=== PATIENT | male | born 1985 | race Caucasian/White ===

== ENCOUNTER 2017-08-12 20:49 | Emergency (ER) | payer BC ==
--- NOTE | 2017-08-12 21:09 | ERPHSYRPT ---
- History of Present Illness Time Seen by Provider: 08/12/17 21:04 Source: patient Exam Limitations: no limitations Physician History: The patient is a 32-year-old male with his complaining of shortness of breath and left-sided chest pain with deep breaths that began on Sunday. 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 He was wearing a mask. He said there was dust in the room. That night he had a a fever but he didn't take the temperature. He was sweating. Today he has not been sweating. His past medical history significant for pneumonia. Timing/Duration: day(s) (2), gradual onset, worse Activities at Onset: none Severity of Dyspnea-Max: mild Severity of Dyspnea-Current: mild Possible Cause: no prior episodes Modifying Factors: Improves With: deep breath Associated Symptoms: fever, painful breathing, sweating Allergies/Adverse Reactions: No Known Drug Allergies Allergy (Unverified 08/12/17 21:18) - Review of Systems Constitutional: Fever, Chills Eyes: No Symptoms Ears, Nose, & Throat: No Symptoms Respiratory: Dyspnea Cardiac: Chest Pain Abdominal/Gastrointestinal: No Abdominal Pain, No Nausea, No Vomiting, No Diarrhea Genitourinary Symptoms: No Dysuria Musculoskeletal: No Back Pain, No Neck Pain Skin: No Rash Neurological: No Dizziness, No Focal Weakness, No Sensory Changes Psychological: No Symptoms Endocrine: No Symptoms Hematologic/Lymphatic: No Symptoms Immunological/Allergic: No Symptoms All Other Systems: Reviewed and Negative - Nursing Vital Signs Nursing Vital Signs: Initial Vital Signs Temperature 98.7 F 08/12/17 21:00 Pulse Rate 117 H 08/12/17 21:00 Respiratory Rate 20 08/12/17 21:00 Blood Pressure 156/86 08/12/17 21:00 O2 Sat by Pulse Oximetry 95 08/12/17 21:00 Pain Scale Pain Intensity 1 - Physical Exam General Appearance: no apparent distress, alert Eye Exam: PERRL/EOMI Ears, Nose, Throat Exam: hearing grossly normal Neck Exam: normal inspection, supple Respiratory Exam: normal breath sounds, No chest tenderness Cardiovascular/Chest Exam: normal heart sounds, regular rate/rhythm Abdominal/Gastrointestinal Exam: soft, No tenderness, No distention, No mass Rectal Exam: not done Extremity Exam: non-tender, normal range of motion, normal inspection, no calf tenderness, no pedal edema Neurologic Exam: alert, oriented x 3, cooperative, 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 tested, sensation nml, No motor deficits Skin Exam: normal color, warm, No dry SpO2 Interpretation: normal SpO2: 95 Oxygen Delivery: Room Air - Course EKG Interpreted by Me: RATE, NORMAL AXIS, NORMAL INTERVALS, NORMAL QRS, NORMAL ST-T - Radiology Exams Chest X-ray Interpretation: Interpreted by me, Infiltrates (bibasilar infiltrates, comp cxr 10/25/16.) Ordered Tests: Active Orders 24 hr Category Date Time Status Student Development Dean STAT Care 08/12/17 21:14 Active EKG-ER Only STAT Care 08/12/17 21:01 Active IV Insertion STAT Care 08/12/17 21:13 Active Pulse Oximetry (ED) STAT Care 08/12/17 21:13 Active CHEST 2 VIEWS (PA AND LAT) Stat Exams 08/12/17 21:14 Taken BLOOD CULTURE Stat Lab 08/12/17 21:59 Ordered CBC W DIFF Stat Lab 08/12/17 21:15 Completed CMP Stat Lab 08/12/17 21:15 Received D-DIMER QUANTITATION Stat Lab 08/12/17 21:15 Completed NT PRO BNP Stat Lab 08/12/17 21:15 Received TROPONIN Q3H Lab 08/12/17 21:15 Completed TROPONIN Q3H Lab 08/13/17 00:15 Ordered TROPONIN Q3H Lab 08/13/17 03:15 Ordered TROPONIN Q3H Lab 08/13/17 06:15 Ordered TROPONIN Q3H Lab 08/13/17 09:15 Ordered Medication Summary Discontinued Medications Generic Name Dose Route Start Last Admin Trade Name Greggq PRN Reason Stop Dose Admin Ceftriaxone Sodium 1,000 mg 08/12/17 21:59 Rocephin 500 Mg Inj IM 08/12/17 22:00 STAT ONE Ketorolac Tromethamine 30 mg 08/12/17 21:15 08/12/17 21:28 Toradol 30 Mg Injection IV 08/12/17 21:16 30 mg STAT ONE Administration Ketorolac Tromethamine Confirm 08/12/17 21:25 Toradol 30 Mg Injection Administered 08/12/17 21:26 Dose 30 mg .ROUTE .STK-MED ONE Potassium Chloride 40 meq 08/12/17 22:00 Klor Con 10 Meq PO 08/12/17 22:01 STAT ONE Lab/Rad Data: Laboratory Result Diagrams 08/12/17 21:15 08/12/17 21:15 Laboratory Results 08/12/17 08/12/17 08/12/17 Range/Units 21:15 21:15 21:15 WBC (4.0-10.5) K/mm3 RBC (4.1-5.6) M/mm3 Hgb (12.5-18.0) gm/dl Hct (42-50) % MCV (78-100) fl MCH (26-32) pg MCHC (32-36) g/dl RDW (11.5-14.0) % Plt Count (150-450) K/mm3 MPV (6-9.5) fl Gran % (36.0-66.0) % Lymphocytes % (24.0-44.0) % Monocytes % (0.0-12.0) % Eosinophils % (0.00-5.0) % Basophils % (0.0-0.4) % Basophils # (0-0.4) D-Dimer 270 (0-500) ng/mL Sodium 141 (136-145) mEq/L Potassium 3.1 L (3.5-5.1) mEq/L Chloride 103 (98-107) mEq/L Carbon Dioxide 25.7 (21-32) mEq/L Anion Gap 15.1 H (5-15) MEQ/L BUN 14 (9-20) mg/dL Creatinine 1.04 (0.55-1.30) mg/dl Estimated GFR > 60 ML/MIN Glucose 111 H (70-110) MG/DL Calcium 8.8 (8.5-10.1) mg/dL Total Bilirubin 0.60 (0.2-1.0) mg/dL AST 27 (15-37) U/L ALT 31 (12-78) U/L Alkaline Phosphatase 72 (46-116) U/L Troponin I < 0.017 (0.000-0.056) ng/ml NT-Pro-B Natriuret Pep 8 (0-125) pg/ml Serum Total Protein 7.7 (6.4-8.2) gm/dL Albumin 3.7 (3.4-5.0) g/dL 10/15/17 Range/Units 21:15 WBC 9.6 (4.0-10.5) K/mm3 RBC 4.77 (4.1-5.6) M/mm3 Hgb 14.3 (12.5-18.0) gm/dl Hct 42.9 (42-50) % MCV 89.9 (78-100) fl MCH 30.0 (26-32) pg MCHC 33.3 (32-36) g/dl RDW 12.9 (11.5-14.0) % Plt Count 242 (150-450) K/mm3 MPV 9.6 H (6-9.5) fl Gran % 66.3 H (36.0-66.0) % Lymphocytes % 19.8 L (24.0-44.0) % Monocytes % 10.2 (0.0-12.0) % Eosinophils % 3.5 (0.00-5.0) % Basophils % 0.2 (0.0-0.4) % Basophils # 0.02 (0-0.4) D-Dimer (0-500) ng/mL Sodium (136-145) mEq/L Potassium (3.5-5.1) mEq/L Chloride (98-107) mEq/L Carbon Dioxide (21-32) mEq/L Anion Gap (5-15) MEQ/L BUN (9-20) mg/dL Creatinine (0.55-1.30) mg/dl Estimated GFR ML/MIN Glucose (70-110) MG/DL Calcium (8.5-10.1) mg/dL Total Bilirubin (0.2-1.0) mg/dL AST (15-37) U/L ALT (12-78) U/L Alkaline Phosphatase (46-116) U/L Troponin I (0.000-0.056) ng/ml NT-Pro-B Natriuret Pep (0-125) pg/ml Serum Total Protein (6.4-8.2) gm/dL Albumin (3.4-5.0) g/dL - Progress Blood Culture(s) Obtained: Yes Antibiotics given: Yes Counseled pt/family regarding: lab results, diagnosis, rad results - Departure Time of Disposition: 22:01 Departure Disposition: Home Clinical Impression: Pneumonia, Hypokalemia Condition: Stable Critical Care Time: No Referrals: CUAUHTEMOC,CECILE, MD [Primary Care Provider] - Additional Instructions: You have pneumonia at the bases of both lungs. You also have low serum potassium. You were given toradol 30 mg and Rocephin 1 g by IV and potassium 40 mEq orally in the ER. Continue to take the Z-Mohit as directed. Follow-up as needed. Prescriptions: Azithromycin 250 mg [Zithromax 250 MG TABLET] 250 mg PO ZPACK #6 tablet
[2017-08-12] MEDS ORDERED: TORAdol 30 mg Injection IV ONE (21:15)
[2017-08-12] MEDS ORDERED: TORAdol 30 mg Injection ONE (21:25)
[2017-08-12 21:30] LABS: BASOPHIL % 0.2 % (0.0-0.4); Eosinophil % 3.5 % (0.00-5.0); Granulocytes % 66.3 % (36.0-66.0); Lymphocytes % 19.8 % (24.0-44.0); Mean Cell Volume 89.9 fl (78-100); Mean Platelet Volume 9.6 fl (6-9.5); Monocytes % 10.2 % (0.0-12.0); Platelet Count 242 K/mm3 (150-450); Red Blood Count 4.77 M/mm3 (4.1-5.6); Red Cell Distribution Width 12.9 % (11.5-14.0); White Blood Count 9.6 K/mm3 (4.0-10.5)
[2017-08-12 21:31] VITALS: PULSE 100
[2017-08-12 21:57] LABS: ALBUMIN 3.7 g/dL (3.4-5.0); ALKALINE PHOSPHATASE 72 U/L (46-116); ANION GAP 15.1 MEQ/L (5-15); BLOOD UREA NITROGEN 14 mg/dL (9-20); CHLORIDE 103 mEq/L (98-107); Carbon Dioxide 25.7 mEq/L (21-32); Glucose 111 MG/DL (70-110); Potassium 3.1 mEq/L (3.5-5.1); SGOT/AST 27 U/L (15-37); SGPT/ALT 31 U/L (12-78); SODIUM 141 mEq/L (136-145); Total Protein 7.7 gm/dL (6.4-8.2)
[2017-08-12] MEDS ORDERED: Rocephin 500 MG INJ IM ONE (21:59)
[2017-08-12] MEDS ORDERED: Klor Con 10 MEQ PO ONE ×2 (22:00→22:06)
[2017-08-12] MEDS ORDERED: ROCEPHIN 1 Gm-D5w 50 ml Bag** 1 G/50 ML IVPB IV STA (22:04)
[2017-08-12] MEDS ORDERED: ROCEPHIN 1 Gm-D5w 50 ml Bag** 1 G/50 ML IVPB IV ONE (22:06)
[2017-08-12 22:36] VITALS: BP 107/73; O2SAT 93
--- NOTE | 2017-08-13 08:43 | XRAY ---
Indication: Chest pain. Comparison: October 25, 2016. PA/lateral chest slightly underinflated again with subtle right base infiltrates versus atelectasis. Heart is not enlarged. Bony thorax intact.
== END 2017-08-12 22:36 | disposition home or self-care (01) ==
LOC: ED 20:49
DX: J18.9 Pneumonia, unspecified organism (principal); E87.6 Hypokalemia; R06.02 Shortness of breath; R07.89 Other chest pain
CPT/HCPCS: 36000; 36415; 71020; 80053; 83880; 84484; 85025; 85379; 87040; 87631; 93005; 93041; 96365; 96374; 99284; J0696; J1885; A9270-GY

== ENCOUNTER 2018-09-25 21:28 | Emergency (ER) | payer BC | END 2018-09-25 22:51 | disposition left against medical advice (07) | LOC: ED 21:28 | DX: Z53.21 Procedure and treatment not carried out due to patient leaving prior to being seen by health care provider (principal) ==

== ENCOUNTER 2021-12-14 20:50 | Emergency (ER) | payer BC ==
[2021-12-14 21:17] VITALS: O2SAT 95
--- NOTE | 2021-12-14 21:31 | ERPHSYRPT ---
- History of Present Illness Source: patient Exam Limitations: no limitations Patient Subjective Stated Complaint: Patient c/o a cought that started yesterday and then a headache that started around 5pm today. States that he coughed really hard and then had his head began to hurt on the right side of of his forehead. Pain extends to side of right head. Denies any pain right back of head. Describes the feeling to area as "wet." Triage Nursing Assessment: Patient ambulated back to ED without difficulties. He is alert and oriented and answering questions appropriately. Non-productive cough noted during assessment. Lungs diminished posteriorly. Skin is warm to touch with sweat beading from forehead. Pupils 3mm. Physician History: 36 yo wm w cough/coryza/R frontal MORRISON/Myalgias x 2 days. Timing/Duration: day(s) (2 days) Cough Quality/Degree: dry cough Possible Cause: no prior episodes Modifying Factors: Improves With: nothing Associated Symptoms: chills, cough, headache, muscle aches, nasal congestion, nasal drainage, No fever, No chest pain/soreness, No dizziness, No earache, No facial pain, No lightheadedness, No shortness of breath, No sinus infection, No sore throat, No wheezing Allergies/Adverse Reactions: sulfamethoxazole [From Bactrim] Allergy (Verified 12/14/21 21:01) trimethoprim [From Bactrim] Allergy (Verified 12/14/21 21:01) Home Medications: Furosemide 20 mg [Lasix 20 mg] 1 tab PO DAILY 12/14/21 [History] Hydrochlorothiazide 25 mg [hydroDIURIL 25 MG] 1 tab PO DAILY 12/14/21 [History] Nebivolol HCl 1 tab PO DAILY 12/14/21 [History] Hx Tetanus, Diphtheria Vaccination/Date Given: Yes Hx Influenza Vaccination/Date Given: Yes Hx Pneumococcal Vaccination/Date Given: No Immunizations Up to Date: Yes Travel Risk - International Travel Have you traveled outside of the country in past 3 weeks: No - Coronavirus Screening Are you exhibiting any of the following symptoms?: Yes Symptoms: Cough: New Onset, Headaches/Body Aches/Fatigue Close contact with a COVID-19 positive Pt in past 14-21 Days: No - Vaccine Status Have you recieved a Covid-19 vaccination: Yes 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 - Vaccination Dates Dates if Unknown: October 2020 - Review of Systems Constitutional: No Symptoms, Chills Eyes: No Symptoms Ears, Nose, & Throat: No Symptoms, Ear Discharge, Nose Congestion Respiratory: No Symptoms, Cough Cardiac: No Symptoms Abdominal/Gastrointestinal: No Symptoms Genitourinary Symptoms: No Symptoms Musculoskeletal: No Symptoms, Arthralgias, Myalgias Skin: No Symptoms Neurological: No Symptoms Psychological: No Symptoms Endocrine: No Symptoms Hematologic/Lymphatic: No Symptoms Immunological/Allergic: No Symptoms - Past Medical History Pertinent Past Medical History: Yes Cardiac History: Hypertension - Past Surgical History Past Surgical History: Yes Other Surgical History: ercp times 2 with polyp removal - Social History Smoking Status: Never smoker Exposure to second hand smoke: No Drug Use: none Patient Lives Alone: No Significant Family History: no pertinent family hx - Nursing Vital Signs Nursing Vital Signs: Initial Vital Signs Temperature 98.7 F 12/14/21 21:02 Pulse Rate 125 H 12/14/21 21:02 Respiratory Rate 20 12/14/21 21:02 Blood Pressure 110/62 12/14/21 21:02 O2 Sat by Pulse Oximetry 95 12/14/21 21:02 Pain Scale Pain Intensity 4 Tachy - Physical Exam General Appearance: no apparent distress Eye Exam: PERRL/EOMI, eyes nml inspection Ears, Nose, Throat Exam: normal ENT inspection, TMs normal, pharynx normal, moist mucous membranes Neck Exam: normal inspection, non-tender, supple, full range of motion, No meningismus, No mass, No Brudzinski, No Kernig's Respiratory Exam: airway intact, diminished breath sounds (Decreased BS B bases), No respiratory distress Cardiovascular Exam: tachycardia, No murmur Gastrointestinal/Abdomen Exam: soft, normal bowel sounds, No tenderness Back Exam: normal inspection, normal range of motion Extremity Exam: normal inspection, normal range of motion Neurologic Exam: alert, oriented x 3, cooperative, 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 tested, normal mood/affect, nml station & gait, sensation nml, No motor deficits, No sensory deficit Skin Exam: normal color, warm, dry Lymphatic Exam: No adenopathy SpO2 Interpretation: normal SpO2: 95 O2 Delivery: Room Air - Course Nursing assessment & vital signs reviewed: Yes - CT Exams Head CT Interpretation: Tele-radiologist Report (Sinusitis, otherwise negative) Ordered Tests: Active Orders 24 hr Category Date Time Status HEAD WITHOUT CONTRAST [CT] Stat Exams 12/14/21 21:55 Taken COVID AG-BINAX NOW RAPID TEST Stat Lab 12/14/21 21:25 Completed INFLUENZA A+B SUKH Stat Lab 12/14/21 21:25 Completed Medication Summary Discontinued Medications Generic Name Dose Route Start Last Admin Trade Name Eric PRN Reason Stop Dose Admin Hydrocodone Bitart/Acetaminophen 1 tablet 12/14/21 23:30 12/14/21 23:35 Hydrocodone/Acetamin 10-325 Mg Tablet PO 12/14/21 23:31 1 tablet STAT ONE Administration Ketorolac Tromethamine 60 mg 12/14/21 21:53 12/14/21 22:01 Ketorolac Tromethamine 30 Mg/Ml Inj IM 12/14/21 21:54 60 mg STAT ONE Administration Ketorolac Tromethamine Confirm 12/14/21 21:54 Ketorolac Tromethamine 30 Mg/Ml Inj Administered 12/14/21 21:55 Dose 60 mg .ROUTE .STK-MED ONE Oseltamivir Phosphate 75 mg 12/14/21 21:53 12/14/21 21:57 Oseltamivir 75 Mg Cap PO 12/14/21 21:54 75 mg STAT ONE Administration Oseltamivir Phosphate Confirm 12/14/21 21:53 Oseltamivir 75 Mg Cap Administered 12/14/21 21:54 Dose 75 mg PO .STK-MED ONE Lab/Rad Data: Laboratory Results 12/14/21 12/14/21 Range/Units 21:25 21:25 Influenza Type A Ag POSITIVE (NEGATIVE) Influenza Type B Ag NEGATIVE (NEGATIVE) SARS-CoV-2 Ag (Rapid) NEGATIVE (NEGATIVE) - Progress Progress: improved Progress Note: 12/14/21 23:09 60mg IM Toradol Tamiflu 75mg po x1 12/14/21 23:41 Norco10 po x1 Counseled pt/family regarding: lab results, diagnosis, need for follow-up, rad results - Departure Departure Disposition: Home Clinical Impression: Influenza A, Sinusitis Condition: Stable Critical Care Time: No Referrals: Jessica Marcos MD [NON-STAFF PHY W/O PRIVILEGES] - Follow up/PCP as directed Instructions: Flu, Adult (DC), Sinusitis, Adult (DC), Headache, Adult (DC) Additional Instructions: Tamiflu once a day for 5 days Augmentin twice a day for 10 days Rest/Fluids/Motrin/Tylenol Forms: Work/School Release Form Prescriptions: Amox Tr/Potass Clav. 875 mg [Augmentin 875-125 Tablet] 875 mg PO BID 10 Days #20 tablet Oseltamivir Phosphate [Tamiflu] 75 mg PO BID #10
[2021-12-14 21:53] LABS: INFLUENZA A POSITIVE (NEGATIVE); INFLUENZA B NEGATIVE (NEGATIVE)
[2021-12-14] MEDS ORDERED: TORAdol 30 mg Injection IM ONE (21:53)
[2021-12-14] MEDS ORDERED: Tamiflu 75MG Capsule PO ONE ×2 (21:53)
[2021-12-14 21:54] LABS: COVID AG -BINAX NOW RAPID TEST NEGATIVE (NEGATIVE)
[2021-12-14] MEDS ORDERED: TORAdol 30 mg Injection ONE (21:54)
[2021-12-14] MEDS ORDERED: HYDROCODONE-ACETAMIN 10-325 MG PO ONE (23:30)
[2021-12-14 23:42] VITALS: BP 96/64; PULSE 96
--- NOTE | 2021-12-15 09:00 | XRAY ---
Indication: Right-sided headache following cough. Multiple contiguous axial images obtained through the head without contrast. Comparison: None Normal appearing brain parenchyma, ventricles, and bony calvarium. Moderate mucosal thickening of both ethmoid and both inferior maxillary sinuses. Mastoid air cells are clear. Impression: Paranasal sinus disease. Remaining CT head without contrast exam is normal. Comment: Preliminary interpretation made by [facility]. No critical discrepancy.
== END 2021-12-14 23:42 | disposition home or self-care (01) ==
LOC: ED 20:50
DX: J10.1 Influenza due to other identified influenza virus with other respiratory manifestations (principal); J01.80 Other acute sinusitis; R05.1 Acute cough; R09.81 Nasal congestion; R51.9 Headache, unspecified; M79.10 Myalgia, unspecified site; I10 Essential (primary) hypertension
CPT/HCPCS: 70450; 87400; 96372; 99000; 99284; J1885; A9270-GY

== ENCOUNTER 2024-12-21 05:55 | Emergency (ER) | payer BC ==
--- NOTE | 2024-12-21 06:19 | ERPHSYRPT ---
- History of Present Illness Source: patient, family, EMS Exam Limitations: no limitations Hx Tetanus, Diphtheria Vaccination/Date Given: Yes Hx Influenza Vaccination/Date Given: Yes Hx Pneumococcal Vaccination/Date Given: No <DOVERAICHA - Last Filed: 12/21/24 06:46> - History of Present Illness Patient Subjective Stated Complaint: Altered mental status <LUAN ANDERSON - Last Filed: 12/21/24 08:57> <BENIGNO BAILEY - Last Filed: 12/21/24 19:37> - History of Present Illness Physician History: The found the patient on the floor with blood in his mouth then he was not really responsive. She called EMS. He does not have a history of seizures. There has been no ingestion of any substances. When EMS arrived he was fairly combative and confused. He was not making any sense with the things that he would say.He came in and went immediately to CT of his head. While he was down there he started becoming more lucid. He was asking a little bit more appropriate questions and answering a little bit more appropriately.He has a history of coronary artery disease and diabetes.He denies any drug use or sleep deprivation.He does not have a history of seizures. (AICHA DOVER) The found the patient on the floor with blood in his mouth then he was not really responsive. She called EMS. He does not have a history of seizures. There has been no ingestion of any substances. When EMS arrived he was fairly combative and confused. He was not making any sense with the things that he would say.He came in and went immediately to CT of his head. While he was down there he started becoming more lucid. He was asking a little bit more appropriate questions and answering a little bit more appropriately.He has a history of coronary artery disease and diabetes.He denies any drug use or sleep deprivation.He does not have a history of seizures. (LUAN ANDERSON) Allergies/Adverse Reactions: sulfamethoxazole [From Bactrim] Allergy (Verified 12/21/24 06:08) trimethoprim [From Bactrim] Allergy (Verified 12/21/24 06:08) Home Medications: Amlodipine Besylate 5 mg [Norvasc 5 mg] 5 mg PO DAILY 12/21/24 [History] Aspirin EC 81 mg [Ecotrin 81 mg] 81 mg PO DAILY 12/21/24 [History] Atorvastatin Calcium 40 mg PO DAILY 12/21/24 [History] Furosemide 40 mg [Lasix 40 MG] 40 mg PO DAILY 12/21/24 [History] Metformin HCl 500 mg [Glucophage 500 MG] 500 mg PO DAILY 12/21/24 [Hist ory] Nebivolol HCl 20 mg PO DAILY 12/21/24 [History] Semaglutide [Ozempic] 2 mg SQ WEEKLY 12/21/24 [History] Spironolactone 25 mg [Aldactone 25 MG] 25 mg PO DAILY 12/21/24 [History] - Review of Systems Respiratory: No Symptoms Cardiac: No Symptoms Abdominal/Gastrointestinal: No Symptoms Musculoskeletal: No Symptoms Skin: No Symptoms Neurological: Other (See HPI) Psychological: No Symptoms All Other Systems: Reviewed and Negative <AICHA DOVER - Last Filed: 12/21/24 06:46> - Past Medical History Pertinent Past Medical History: Yes Cardiac History: Hypertension - Past Surgical History Past Surgical History: Yes Other Surgical History: ercp times 2 with polyp removal Significant Family History: no pertinent family hx - Social History Smoking Status: Never smoker Exposure to second hand smoke: No Drug Use: none Patient Lives Alone: No <AICHA DOVER - Last Filed: 12/21/24 06:46> - Reynold Coma Scale Best Eye Response ([place]): (4) open spontaneously Best Verbal Response ([place]): (4) confused conversation Best Motor Response ([place]): (6) obeys commands [place] Total: 14 (Patient appears postictal) - Physical Exam General Appearance: no apparent distress Eye Exam: bilateral eye: normal inspection, PERRL, EOMI Ears, Nose, Throat Exam: normal ENT inspection, TMs normal Neck Exam: normal inspection Respiratory: normal breath sounds Cardiovascular: regular rate/rhythm Gastrointestinal: soft, normal bowel sounds Mental Status: alert, agitated, disoriented to time wet washer machine Exam: normal hearing, abnormal speech (Speech was confused and a little bit slurred but it is improving pretty rapidly is heHas a little bit of time.) Motor/Sensory: no motor deficit, no sensory deficit, no pronator drift Skin Exam: normal color, warm, dry <AICHA DOVER - Last Filed: 12/21/24 06:46> - Nursing Vital Signs Nursing Vital Signs: Initial Vital Signs Temperature 96.9 F 12/21/24 06:28 Pulse Rate 107 H 12/21/24 06:28 Respiratory Rate 26 H 12/21/24 06:28 Blood Pressure 87/71 12/21/24 06:28 O2 Sat by Pulse Oximetry 94 L 12/21/24 06:28 Pain Scale Pain Intensity 4 - Course EKG Interpreted by Me: RATE, Left [place] Deviation, NORMAL INTERVALS, NORMAL QRS, Q-wave (In the inferior leads), NORMAL ST-T <AICHA DOVER - Last Filed: 12/21/24 06:46> Ordered Tests: Active Orders 24 hr Category Date Time Status EKG-ER Only STAT Care 12/21/24 06:14 Active NPO (ED) STAT Care 12/21/24 07:58 Active Tele-Health Consult ROUTINE Cons 12/21/24 08:31 Active CHEST WITH CONTRAST [CT] Stat Exams 12/21/24 07:30 Completed HEAD WITHOUT CONTRAST [CT] Stat Exams 12/21/24 05:56 Completed ABG [ARTERIAL BLOOD GASES] Stat Lab 12/21/24 08:20 Completed CBC W DIFF Stat Lab 12/21/24 06:20 Completed CMP Stat Lab 12/21/24 06:20 Completed D-DIMER QUANTITATIVE Stat Lab 12/21/24 06:20 Completed Lactic Acid Routine Lab 12/21/24 11:15 Completed Lactic Acid Stat Lab 12/21/24 07:08 Completed TROPONIN Q4H Lab 12/21/24 06:20 Completed TROPONIN Q4H Lab 12/21/24 09:50 Completed TROPONIN Q4H Lab 12/21/24 14:28 Completed TROPONIN Q4H Lab 12/21/24 19:16 Received TROPONIN Q4H Lab 12/21/24 22:30 Ordered UA W/RFX UR CULTURE Stat Lab 12/21/24 10:46 Completed Urine Triage Profile Stat Lab 12/21/24 10:46 Completed Medication Summary Generic Name Dose Route Start Last Admin Trade Name Freq PRN Reason Stop Dose Admin Sodium Chloride 1,000 mls @ 75 mls/hr 12/21/24 18:30 12/21/24 18:28 Sodium Chloride 0.9% 1000 Ml IV 01/20/25 18:29 75 mls/hr .[id number] DYLON Administration Discontinued Medications Generic Name Dose Route Start Last Admin Trade Name Eric PRN Reason Stop Dose Admin Acetaminophen 650 mg 12/21/24 18:27 12/21/24 18:30 Acetaminophen 325 Mg Tablet PO 12/21/24 18:28 650 mg STAT STA Administration Acetaminophen Confirm 12/21/24 18:29 Acetaminophen 325 Mg Tablet Administered 12/21/24 18:30 Dose 650 mg .ROUTE .STK-MED ONE Aspirin 324 mg 12/21/24 11:11 12/21/24 11:15 Aspirin 81 Mg Tab.Chew PO 12/21/24 11:12 324 mg STAT ONE Administration Aspirin Confirm 12/21/24 11:14 Aspirin 81 Mg Tab.Chew Administered 12/21/24 11:15 Dose 324 mg .ROUTE .STK-MED ONE Sodium Chloride 1,000 mls @ 999 mls/hr 12/21/24 07:30 12/21/24 14:02 Sodium Chloride 0.9% 1000 Ml IV 12/21/24 08:30 Infused .[id number] STA Infusion Sodium Chloride Confirm 12/21/24 07:49 Sodium Chloride 0.9% 1000 Ml Administered 12/21/24 07:50 Dose 1,000 mls @ ud .ROUTE .STK-MED ONE Sodium Chloride 1,000 mls @ 150 mls/hr 12/21/24 11:15 12/21/24 18:20 Sodium Chloride 0.9% 1000 Ml IV 01/20/25 11:14 Infused .[id number] DYLON Infusion Levetiracetam 1,500 mg 12/21/24 08:47 12/21/24 09:00 Levetiracetam 500 Mg Tablet PO 12/21/24 08:48 1,500 mg ONCE ONE Administration Lab/Rad Data: Laboratory Result Diagrams 12/21/24 06:20 12/21/24 06:20 Laboratory Results 12/21/24 12/21/24 12/21/24 Range/Units 14:28 11:15 10:46 WBC (4.23-9.07) x10^3/uL RBC (4.63-6.08) x10^6/uL Hgb (13.7-17.5) g/dL Hct (40.1-51.0) % MCV (79.0-92.2) fL MCH (25.7-32.2) pg MCHC (32.3-36.5) g/dL RDW (11.6-14.4) % Plt Count (163-337) x10^3/uL MPV (9.4-12.4) fL Gran % (34.0-67.9) % Immature Gran % (Auto) (0.001-0.429) % Nucleat RBC Rel Count (0.00-0.2) % Eos # (Auto) (0.04-0.54) x10^3/uL Immature Gran # (Auto) (0.001-0.031) x10^3u/L Absolute Lymphs (auto) (1.32-3.57) x10^3/uL Absolute Monos (auto) (0.30-0.82) x10^3/uL Absolute Nucleated RBC (0.00-0.012) x10^3u/L Lymphocytes % (21.8-53.1) % Monocytes % (5.3-12.2) % Eosinophils % (0.8-7.0) % Basophils % (0.2-1.2) % Absolute Granulocytes (1.78-5.38) x10^3/uL Basophils # (0.01-0.08) x10^3/uL D-Dimer (0.0-0.50) mg/L Puncture Site pCO2 (35-45) mmHg pO2 (75-100) mmHg Base Excess (-2.0-2.0) O2 Saturation (94-100) g/dF ABG pH (7.35-7.45) ABG HCO3 (22-28) ABG O2 Sat (Measured) (95-100) % Sandeep Test A-a Gradient a/A Ratio Hemoglobin Carboxyhemoglobin (0.0-6.9) % THgb Methemoglobin (1.4-1.5) % Temperature C POC O2 Flow Rate % Sodium (135-145) mmol/L Potassium (3.5-5.1) mmol/L Chloride (98-107) mmol/L Carbon Dioxide (22-30) mmol/L Anion Gap (5-15) MEQ/L BUN (9-20) mg/dL Creatinine (0.66-1.25) mg/dL Estimated GFR ML/MIN Glucose (74-106) mg/dL Lactic Acid 2.6 H (0.4-2.0) Calcium (8.4-10.2) mg/dL Total Bilirubin (0.2-1.3) mg/dL AST (17-59) U/L ALT (0-50) U/L Alkaline Phosphatase (38-126) U/L Troponin I 0.547 H* (0.000-0.033) ng/mL Serum Total Protein (6.3-8.2) g/dL Albumin (3.5-5.0) g/dL Urine Color (Yellow) Urine Appearance (Clear) Urine pH (4.6-8.0) Ur Specific [place] (1.005-1.030) Urine Protein (Negative) Urine Glucose (UA) (Negative) mg/dL Urine Ketones (Negative) Urine Blood (Negative) Urine Nitrite (Negative) Urine Bilirubin (Negative) Urine Urobilinogen (0.2) mg/dL Ur Leukocyte Esterase (Negative) U Hyaline Cast (Auto) (0-2) /LPF Urine Microscopic RBC (0-5) /HPF Urine Microscopic WBC (0-5) /HPF Ur Epithelial Cells (None Seen) /HPF Urine Bacteria (None Seen) /HPF Urine Culture Reflexed (NO) Urine Opiates Level NEGATIVE (NEGATIVE) Ur Methadone NEGATIVE (NEGATIVE) Urine Barbiturates NEGATIVE (NEGATIVE) Ur Phencyclidine (PCP) NEGATIVE (NEGATIVE) Urine Amphetamine NEGATIVE (NEGATIVE) U Benzodiazepine Level NEGATIVE (NEGATIVE) Urine Cocaine NEGATIVE (NEGATIVE) Urine Marijuana (THC) NEGATIVE (NEGATIVE) 12/21/24 12/21/24 12/21/24 Range/Units 10:46 09:50 08:20 WBC (4.23-9.07) x10^3/uL RBC (4.63-6.08) x10^6/uL Hgb (13.7-17.5) g/dL Hct (40.1-51.0) % MCV (79.0-92.2) fL MCH (25.7-32.2) pg MCHC (32.3-36.5) g/dL RDW (11.6-14.4) % Plt Count (163-337) x10^3/uL MPV (9.4-12.4) fL Gran % (34.0-67.9) % Immature Gran % (Auto) (0.001-0.429) % Nucleat RBC Rel Count (0.00-0.2) % Eos # (Auto) (0.04-0.54) x10^3/uL Immature Gran # (Auto) (0.001-0.031) x10^3u/L Absolute Lymphs (auto) (1.32-3.57) x10^3/uL Absolute Monos (auto) (0.30-0.82) x10^3/uL Absolute Nucleated RBC (0.00-0.012) x10^3u/L Lymphocytes % (21.8-53.1) % Monocytes % (5.3-12.2) % Eosinophils % (0.8-7.0) % Basophils % (0.2-1.2) % Absolute Granulocytes (1.78-5.38) x10^3/uL Basophils # (0.01-0.08) x10^3/uL D-Dimer (0.0-0.50) mg/L Puncture Site LEFT RADIAL pCO2 37 (35-45) mmHg pO2 71 L (75-100) mmHg Base Excess -0.7 (-2.0-2.0) O2 Saturation 93.0 L (94-100) g/dF ABG pH 7.41 (7.35-7.45) ABG HCO3 23.5 (22-28) ABG O2 Sat (Measured) 95.4 (95-100) % Sandeep Test yes A-a Gradient 32 a/A Ratio 0.69 Hemoglobin 17.7 Carboxyhemoglobin 1.4 (0.0-6.9) % THgb Methemoglobin 1.1 L (1.4-1.5) % Temperature 37.0 C POC O2 Flow Rate 21 % Sodium (135-145) mmol/L Potassium 3.0 L (3.5-5.1) mmol/L Chloride (98-107) mmol/L Carbon Dioxide (22-30) mmol/L Anion Gap (5-15) MEQ/L BUN (9-20) mg/dL Creatinine (0.66-1.25) mg/dL Estimated GFR ML/MIN Glucose (74-106) mg/dL Lactic Acid (0.4-2.0) Calcium (8.4-10.2) mg/dL Total Bilirubin (0.2-1.3) mg/dL AST (17-59) U/L ALT (0-50) U/L Alkaline Phosphatase (38-126) U/L Troponin I 0.459 H* (0.000-0.033) ng/mL Serum Total Protein (6.3-8.2) g/dL Albumin (3.5-5.0) g/dL Urine Color Yellow (Yellow) Urine Appearance Clear (Clear) Urine pH 5.0 (4.6-8.0) Ur Specific [place] >=1.030 A (1.005-1.030) Urine Protein Trace A (Negative) Urine Glucose (UA) Negative (Negative) mg/dL Urine Ketones Negative (Negative) Urine Blood Negative (Negative) Urine Nitrite Negative (Negative) Urine Bilirubin Negative (Negative) Urine Urobilinogen 0.2 (0.2) mg/dL Ur Leukocyte Esterase Negative (Negative) U Hyaline Cast (Auto) NONE SEEN (0-2) /LPF Urine Microscopic RBC 0-2 (0-5) /HPF Urine Microscopic WBC 0-2 (0-5) /HPF Ur Epithelial Cells None Seen (None Seen) /HPF Urine Bacteria None Seen (None Seen) /HPF Urine Culture Reflexed NO (NO) Urine Opiates Level (NEGATIVE) Ur Methadone (NEGATIVE) Urine Barbiturates (NEGATIVE) Ur Phencyclidine (PCP) (NEGATIVE) Urine Amphetamine (NEGATIVE) U Benzodiazepine Level (NEGATIVE) Urine Cocaine (NEGATIVE) Urine Marijuana (THC) (NEGATIVE) 12/21/24 12/21/24 12/21/24 Range/Units 07:08 06:20 06:20 WBC (4.23-9.07) x10^3/uL RBC (4.63-6.08) x10^6/uL Hgb (13.7-17.5) g/dL Hct (40.1-51.0) % MCV (79.0-92.2) fL MCH (25.7-32.2) pg MCHC (32.3-36.5) g/dL RDW (11.6-14.4) % Plt Count (163-337) x10^3/uL MPV (9.4-12.4) fL Gran % (34.0-67.9) % Immature Gran % (Auto) (0.001-0.429) % Nucleat RBC Rel Count (0.00-0.2) % Eos # (Auto) (0.04-0.54) x10^3/uL Immature Gran # (Auto) (0.001-0.031) x10^3u/L Absolute Lymphs (auto) (1.32-3.57) x10^3/uL Absolute Monos (auto) (0.30-0.82) x10^3/uL Absolute Nucleated RBC (0.00-0.012) x10^3u/L Lymphocytes % (21.8-53.1) % Monocytes % (5.3-12.2) % Eosinophils % (0.8-7.0) % Basophils % (0.2-1.2) % Absolute Granulocytes (1.78-5.38) x10^3/uL Basophils # (0.01-0.08) x10^3/uL D-Dimer 1.31 H* (0.0-0.50) mg/L Puncture Site pCO2 (35-45) mmHg pO2 (75-100) mmHg Base Excess (-2.0-2.0) O2 Saturation (94-100) g/dF ABG pH (7.35-7.45) ABG HCO3 (22-28) ABG O2 Sat (Measured) (95-100) % Sandeep Test A-a Gradient a/A Ratio Hemoglobin Carboxyhemoglobin (0.0-6.9) % THgb Methemoglobin (1.4-1.5) % Temperature C POC O2 Flow Rate % Sodium (135-145) mmol/L Potassium (3.5-5.1) mmol/L Chloride (98-107) mmol/L Carbon Dioxide (22-30) mmol/L Anion Gap (5-15) MEQ/L BUN (9-20) mg/dL Creatinine (0.66-1.25) mg/dL Estimated GFR ML/MIN Glucose (74-106) mg/dL Lactic Acid 7.3 H (0.4-2.0) Calcium (8.4-10.2) mg/dL Total Bilirubin (0.2-1.3) mg/dL AST (17-59) U/L ALT (0-50) U/L Alkaline Phosphatase (38-126) U/L Troponin I 0.036 H* (0.000-0.033) ng/mL Serum Total Protein (6.3-8.2) g/dL Albumin (3.5-5.0) g/dL Urine Color (Yellow) Urine Appearance (Clear) Urine pH (4.6-8.0) Ur Specific [place] (1.005-1.030) Urine Protein (Negative) Urine Glucose (UA) (Negative) mg/dL Urine Ketones (Negative) Urine Blood (Negative) Urine Nitrite (Negative) Urine Bilirubin (Negative) Urine Urobilinogen (0.2) mg/dL Ur Leukocyte Esterase (Negative) U Hyaline Cast (Auto) (0-2) /LPF Urine Microscopic RBC (0-5) /HPF Urine Microscopic WBC (0-5) /HPF Ur Epithelial Cells (None Seen) /HPF Urine Bacteria (None Seen) /HPF Urine Culture Reflexed (NO) Urine Opiates Level (NEGATIVE) Ur Methadone (NEGATIVE) Urine Barbiturates (NEGATIVE) Ur Phencyclidine (PCP) (NEGATIVE) Urine Amphetamine (NEGATIVE) U Benzodiazepine Level (NEGATIVE) Urine Cocaine (NEGATIVE) Urine Marijuana (THC) (NEGATIVE) 12/21/24 12/21/24 Range/Units 06:20 06:20 WBC 10.1 H (4.23-9.07) x10^3/uL RBC 5.61 (4.63-6.08) x10^6/uL Hgb 17.4 (13.7-17.5) g/dL Hct 53.0 H (40.1-51.0) % MCV 94.5 H (79.0-92.2) fL MCH 31.0 (25.7-32.2) pg MCHC 32.8 (32.3-36.5) g/dL RDW 13.1 (11.6-14.4) % Plt Count 300 (163-337) x10^3/uL MPV 9.2 L (9.4-12.4) fL Gran % 51.9 (34.0-67.9) % Immature Gran % (Auto) 3.4 H (0.001-0.429) % Nucleat RBC Rel Count 0.0 (0.00-0.2) % Eos # (Auto) 0.05 (0.04-0.54) x10^3/uL Immature Gran # (Auto) 0.34 H (0.001-0.031) x10^3u/L Absolute Lymphs (auto) 4.23 H (1.32-3.57) x10^3/uL Absolute Monos (auto) 0.20 L (0.30-0.82) x10^3/uL Absolute Nucleated RBC 0.00 (0.00-0.012) x10^3u/L Lymphocytes % 41.8 (21.8-53.1) % Monocytes % 2.0 L (5.3-12.2) % Eosinophils % 0.5 L (0.8-7.0) % Basophils % 0.4 (0.2-1.2) % Absolute Granulocytes 5.27 (1.78-5.38) x10^3/uL Basophils # 0.04 (0.01-0.08) x10^3/uL D-Dimer (0.0-0.50) mg/L Puncture Site pCO2 (35-45) mmHg pO2 (75-100) mmHg Base Excess (-2.0-2.0) O2 Saturation (94-100) g/dF ABG pH (7.35-7.45) ABG HCO3 (22-28) ABG O2 Sat (Measured) (95-100) % Sandeep Test A-a Gradient a/A Ratio Hemoglobin Carboxyhemoglobin (0.0-6.9) % THgb Methemoglobin (1.4-1.5) % Temperature C POC O2 Flow Rate % Sodium 140 (135-145) mmol/L Potassium 3.2 L (3.5-5.1) mmol/L Chloride 100 (98-107) mmol/L Carbon Dioxide 19 L (22-30) mmol/L Anion Gap 24.1 H (5-15) MEQ/L BUN 24 H (9-20) mg/dL Creatinine 1.58 H (0.66-1.25) mg/dL Estimated GFR 56.0 ML/MIN Glucose 219 H (74-106) mg/dL Lactic Acid (0.4-2.0) Calcium 8.7 (8.4-10.2) mg/dL Total Bilirubin 0.70 (0.2-1.3) mg/dL AST 40 (17-59) U/L ALT 42 (0-50) U/L Alkaline Phosphatase 96 (38-126) U/L Troponin I (0.000-0.033) ng/mL Serum Total Protein 7.2 (6.3-8.2) g/dL Albumin 4.3 (3.5-5.0) g/dL Urine Color (Yellow) Urine Appearance (Clear) Urine pH (4.6-8.0) Ur Specific [place] (1.005-1.030) Urine Protein (Negative) Urine Glucose (UA) (Negative) mg/dL Urine Ketones (Negative) Urine Blood (Negative) Urine Nitrite (Negative) Urine Bilirubin (Negative) Urine Urobilinogen (0.2) mg/dL Ur Leukocyte Esterase (Negative) U Hyaline Cast (Auto) (0-2) /LPF Urine Microscopic RBC (0-5) /HPF Urine Microscopic WBC (0-5) /HPF Ur Epithelial Cells (None Seen) /HPF Urine Bacteria (None Seen) /HPF Urine Culture Reflexed (NO) Urine Opiates Level (NEGATIVE) Ur Methadone (NEGATIVE) Urine Barbiturates (NEGATIVE) Ur Phencyclidine (PCP) (NEGATIVE) Urine Amphetamine (NEGATIVE) U Benzodiazepine Level (NEGATIVE) Urine Cocaine (NEGATIVE) Urine Marijuana (THC) (NEGATIVE) - Progress Progress: re-examined Counseled pt/family regarding: lab results, diagnosis, need for follow-up, rad results <BENIGNO BAILEY - Last Filed: 12/21/24 19:37> - Progress Progress Note: 12/21/24 07:31 I assumed care for pt from Dr Dover at 0700 d dimer elevated trop elevated lactate > 7 - will give bolus IV NS 12/21/24 07:58 on my initial eval of pt he is AxO x 3, reports feeling continued fatigue and generalized muscle soreness, wet washer machine grossly intact repeat ekg at 07:57 - rate 110, sinus tach, no significant ST changes, not s uggestive of acute ischemia CTA chest pending 12/21/24 08:04 pt's spouse just informed us that pt did urinate on himself during episode of unresponsiveness 12/21/24 08:31 pt does have dark old blood on tongue, appears to have bitten the tip of his tongue 12/21/24 08:39 tele-neuro evaluation completed at 08:38 - awaiting to discuss plan w/ neurologist 12/21/24 08:48 Discussed pt case w/ neurologist Dr Anderson: current NIHSS 0 she states that seizure is most likely cause of sx, lower suspicion for CVA, recommends starting keppra 1500mg loading dose followed by 1000mg BID maintenance, also recommends starting dual antiplatelet therapy w/ aspirin/plavix, and increasing statin dose she recommends hospital admission and MRI brain when available 12/21/24 09:05 I spoke w/ hospitalist Dr Morton who is willing to accept pt for obs 12/21/24 10:43 troponin increased from 0.036 to 0.459, I will discuss this w/ hospitalist at [facility] and determine if they would like us to transfer to outside facility for cardiology eval 12/21/24 11:06 Dr Joshua Winslow [facility] center - recommends pt be transferred to tertiary facility w/ neurology coverage 12/21/24 11:07 12/21/24 11:10 pt complaining of some chest pressure, repeat ekg ordered at 11:08 - hr 111, sinus tach, not suggestive of acute ischemia no acute change from prior ekg 12/21/24 11:12 will give aspirin and continue IV fluids 12/21/24 11:42 I spoke w/ [facility] cardiology Dr Mendez who is willing to consult on pt if transferred to their facility - did not recommend heparinizing pt at this time 12/21/24 12:18 i spoke w/ Dr Montez hospitalist at [address] who is willing to accept pt for transfer 12/21/24 16:09 Still awaiting final determination on bed availability 3rd troponin 0.547, no chest pain reported pt remains neurologically intact, no further seizure like activity 12/21/24 19:34 Pt still pending bed assignment, continues to be vitally stable I discussed pt case w/ Dr Dover who will assume care for pt at this time 12/21/24 19:36 Pt will need to receive 1000mg BID dosing of keppra if he remains in the ED until tomorrow - discussed w/ physician and nursing staff (BENIGNO BAILEY) Medical Desision Making - Diagnostic Testing Diagnostic test were ordered, analyzed, and reviewed by me: Yes Radiological Interpretation: Reviewed by me, Teleradiologist Report - Risk of complications The pt has a high risk of morbidity or mortality based on: Decision regarding hospitilization or escalation of hosp level of care <BENIGNO BAILEY - Last Filed: 12/21/24 19:37> <AICHA DOVER - Last Filed: 12/21/24 06:46> <LUAN ANDERSON - Last Filed: 12/21/24 08:57> - Departure Departure Disposition: Transfer Critical Care Time: No <BENIGNO BAILEY - Last Filed: 12/21/24 19:37> - Departure Clinical Impression: Seizure, NSTEMI (non-ST elevated myocardial infarction) Condition: Stable Referrals: CECILE POSADAS MD [Primary Care Provider] - Follow up/PCP as directed
[2024-12-21 06:26] LABS: Absolute Neutrophil Ct (ANC) 5.27 x10^3/uL (1.78-5.38); BASOPHIL % 0.4 % (0.2-1.2); Basophil (Absolute #) 0.04 x10^3/uL (0.01-0.08); Eosinophil % 0.5 % (0.8-7.0); Eosinophil (Absolute #) 0.05 x10^3/uL (0.04-0.54); Hemoglobin 17.4 g/dL (13.7-17.5); IMMATURE GRAN # 0.34 x10^3u/L (0.001-0.031); IMMATURE GRAN % 3.4 % (0.001-0.429); Lymphocyte (Absolute #) 4.23 x10^3/uL (1.32-3.57); Lymphocytes % 41.8 % (21.8-53.1); Mean Cell Volume 94.5 fL (79.0-92.2); Mean Corpuscular Hgb Concent. 32.8 g/dL (32.3-36.5); Mean Platelet Volume 9.2 fL (9.4-12.4); Neutrophil % 51.9 % (34.0-67.9); Platelet Count 300 x10^3/uL (163-337); Red Blood Count 5.61 x10^6/uL (4.63-6.08); Red Cell Distribution Width 13.1 % (11.6-14.4); White Blood Count 10.1 x10^3/uL (4.23-9.07)
[2024-12-21 06:40] LABS: ALBUMIN 4.3 g/dL (3.5-5.0); ANION GAP 24.1 MEQ/L (5-15); BILIRUBIN,TOTAL 0.7 mg/dL (0.2-1.3); Calcium 8.7 mg/dL (8.4-10.2); Creatinine 1 1.58 mg/dL (0.66-1.25); Potassium 3.2 mmol/L (3.5-5.1); Total Protein 7.2 g/dL (6.3-8.2)
--- NOTE | 2024-12-21 06:41 | XRAY ---
CLINICAL HISTORY: confusion COMPARISON: None. TECHNIQUE: An axial non-contrast CT scan of the brain was performed from the skull base to the high parietal region. One of the following dose reduction techniques was utilized for this exam: Automated exposure control, adjustment of the mA and/or kV according to patient size, and use of iterative reconstruction. CTDI:53.92 mGy, DLP: 1208.06 mGy-cm. FINDINGS: Brain Parenchyma: Normal attenuation of the cerebral hemispheres, cerebellum, and brainstem. No evidence of acute infarct, hemorrhage, or mass effect. No abnormal areas of hypo- or hyperattenuation. Ventricular System: Ventricles are normal in size and configuration. No evidence of hydrocephalus or ventricular enlargement. Subarachnoid Spaces: Normal sulci and cisterns. No evidence of subarachnoid hemorrhage or extra-axial fluid collections. Cerebellum and Brainstem: Limited evaluation due to motion/beam hardening artifacts. Normal size and attenuation. No masses, lesions, or areas of abnormal attenuation. Orbits: Normal appearance of the globes, optic nerves, and extraocular muscles. No evidence of orbital masses or abnormal attenuation. Sinuses: A few small retention cysts were seen in both maxillary sinuses. Clear other paranasal sinuses. Mastoid Air Cells: Clear mastoid air cells. No evidence of mastoiditis. Skull: Normal skull morphology. IMPRESSION: 1. No acute intracranial hemorrhage or acute abnormality was identified. 2. Limited evaluation of posterior fossa due to motion/beam hardening artifacts. 3. Recommend MRI brain with DWI to rule out acute ischemic insult for better evaluation if clinically warranted. [facility] ER was called at [phone] at 5:31 AM [employer] on 12/21/2024, and Dr Dover was informed regarding the negative Stroke results. Electronically Signed by: Darrion Mittal MD. (12/21/2024 06:36:58 EST)
[2024-12-21 06:50] VITALS: TEMP 96.9
[2024-12-21] MEDS ORDERED: Sodium Chloride 0.9% 1000 ML 1,000 ML ONE (07:49)
[2024-12-21] MEDS: Sodium Chloride 0.9% 1000 ML 1,000 ML IV STA (07:50)
[2024-12-21 08:34] LABS: A-aADO2 32; ABG HEMOGLOBIN 17.7; ARTERIAL BLD GAS O2 SATURATION 95.4 % (95-100); ARTERIAL BLOOD GAS BASE EXCESS -0.7 (-2.0-2.0); ARTERIAL BLOOD GAS FIO2 21 %; ARTERIAL BLOOD GAS PCO2 37 mmHg (35-45); ARTERIAL BLOOD GAS PO2 71 mmHg (75-100); ARTERIAL BLOOD GAS pH 7.41 (7.35-7.45); CARBOXYHEMOGLOBIN 1.4 % THgb (0.0-6.9); HCO3- 23.5 (22-28); Methhemoglobin 1.1 % (1.4-1.5); paO2 pAO1 0.69
[2024-12-21 08:35] LABS: ABG SITE LEFT RADIAL; ALLEN TEST OK? yes
--- NOTE | 2024-12-21 08:53 | XRAY ---
CLINICAL HISTORY: PE r/o elevated d dimer COMPARISON: none TECHNIQUE: CT of chest was performed with intravenous contrast with pulmonary embolism protocol, with the following protocol: axial images with, reconstructed coronal and sagittal images. One of these 3D techniques was utilized: Maximum Intensity Pixel (MIP), 3D Reconstructed Images, Volume Rendered Images, Surface Shaded Rendering. One of the following dose reduction techniques was utilized for this exam: Automated exposure control, adjustment of the mA and/or kV according to patient size, and use of iterative reconstruction. DLP: 1690mGy*cm. FINDINGS: Aorta and Great Vessels: Ascending Aorta: Normal in caliber, no aneurysm, dissection, or significant atherosclerosis. Aortic Arch: Normal in caliber, no aneurysm, dissection, or significant atherosclerosis. Descending Aorta: Normal in caliber, no aneurysm, dissection, or significant atherosclerosis. Pulmonary Arteries: The main pulmonary artery and its branches are patent. No evidence of pulmonary embolism or significant stenosis. Heart: Cardiac Chambers: Normal in size. No evidence of cardiomegaly. Pericardium: No pericardial effusion or thickening. Lungs and Pleura: Lungs are clear without evidence of consolidation, collapse, or focal lesions. No pleural effusion or pleural thickening. Mediastinum: Few calcified right hilar and mediastinal lymph nodes. Normal appearance of the trachea and central bronchi. Hilar Structures: Hilar structures are normal without enlargement. Chest Wall: No mass lesions or abnormalities in the chest wall. Bones and Soft Tissues: No fractures, lytic, or blastic lesions of the visualized bony structures. Spine degenerative changes IMPRESSION: 1. The study is negative for pulmonary embolism 2. No acute cardiopulmonary finding. Electronically Signed by: Darrion Mittal MD. (12/21/2024 08:48:37 EST)
--- NOTE | 2024-12-21 08:56 | PCM.CONS ---
History of Present Illness - Neuro Consultation Date of Consultation Date: 12/21/24 (new onset AMS) ED Arrival Date & Time: 12/21/24 05:55 Patient presents with altered mental status upon awakening... LKW 1000 last night on 12/20/2024 at bedtime.... awakened having bitten tongue.... Providers: Attending Provider: ED Provider: AICHA REYES MD Consulting Provider: LUAN ANDERSON DO cc:: The requesting physician will be sent a copy of the consult. - History of Present Illness HPI: The patient is a 39M Review of Systems - Review of Systems Review of Systems (Narrative): Pertinent positive and negative findings as per HPI. All other systems negative. - Past Medical History Past Medical History: Yes Cardiac History: Hypertension Endocrine Medical History: Diabetes Type II - Past Surgical History Past Surgical History: Yes Other Surgical History: ercp times 2 with polyp removal Significant Family History: no pertinent family hx - Social History Smoking Status: Never smoker Exposure to second hand smoke: No Alcohol: Occasionally Drug Use: none - Social Determinants of Health Will the patient participate in the screening: Yes Do you worry about a steady place to live?: No Do you have any problems with any of the following?: No known problems In the past 12 months,have you had to go without utilities?: No Have you or anyone in your house had to go without enough: No Transportation Issues: No Has anyone in your support network made you feel unsafe?: No Physical Exam - Vital Signs Vital Signs: Vital Signs - 24 hr 12/21/24 12/21/24 12/21/24 06:28 06:30 07:01 Temperature 96.9 F Pulse Rate 107 H 110 H 108 H Respiratory 26 H 24 20 Rate Blood Pressure 107/83 85/55 Blood Pressure 87/71 [Left Arm] O2 Sat by Pulse 94 L 93 L 95 Oximetry 12/21/24 07:30 Temperature Pulse Rate 112 H Respiratory 15 Rate Blood Pressure 96/64 Blood Pressure [Left Arm] O2 Sat by Pulse 96 Oximetry - NIHSS Stroke Scale Date Completed: 12/21/24 Time Stroke Scale Completed: 06:39 Results - Labs Lab/Micro Results: Lab Results-Last 24 Hours 12/21/24 12/21/24 12/21/24 Range/Units 06:20 06:20 06:20 WBC 10.1 H (4.23-9.07) x10^3/uL RBC 5.61 (4.63-6.08) x10^6/uL Hgb 17.4 (13.7-17.5) g/dL Hct 53.0 H (40.1-51.0) % MCV 94.5 H (79.0-92.2) fL MCH 31.0 (25.7-32.2) pg MCHC 32.8 (32.3-36.5) g/dL RDW 13.1 (11.6-14.4) % Plt Count 300 (163-337) x10^3/uL MPV 9.2 L (9.4-12.4) fL Gran % 51.9 (34.0-67.9) % Immature Gran % (Auto) 3.4 H (0.001-0.429) % Nucleat RBC Rel Count 0.0 (0.00-0.2) % Eos # (Auto) 0.05 (0.04-0.54) x10^3/uL Immature Gran # (Auto) 0.34 H (0.001-0.031) x10^3u/L Absolute Lymphs (auto) 4.23 H (1.32-3.57) x10^3/uL Absolute Monos (auto) 0.20 L (0.30-0.82) x10^3/uL Absolute Nucleated RBC 0.00 (0.00-0.012) x10^3u/L Lymphocytes % 41.8 (21.8-53.1) % Monocytes % 2.0 L (5.3-12.2) % Eosinophils % 0.5 L (0.8-7.0) % Basophils % 0.4 (0.2-1.2) % Absolute Granulocytes 5.27 (1.78-5.38) x10^3/uL Basophils # 0.04 (0.01-0.08) x10^3/uL D-Dimer 1.31 H* (0.0-0.50) mg/L Puncture Site pCO2 (35-45) mmHg pO2 (75-100) mmHg Base Excess (-2.0-2.0) O2 Saturation (94-100) g/dF ABG pH (7.35-7.45) ABG HCO3 (22-28) ABG O2 Sat (Measured) (95-100) % Sandeep Test A-a Gradient a/A Ratio Hemoglobin Carboxyhemoglobin (0.0-6.9) % THgb Methemoglobin (1.4-1.5) % Temperature C POC O2 Flow Rate % Sodium 140 (135-145) mmol/L Potassium 3.2 L (3.5-5.1) mmol/L Chloride 100 (98-107) mmol/L Carbon Dioxide 19 L (22-30) mmol/L Anion Gap 24.1 H (5-15) MEQ/L BUN 24 H (9-20) mg/dL Creatinine 1.58 H (0.66-1.25) mg/dL Estimated GFR 56.0 ML/MIN Glucose 219 H (74-106) mg/dL Lactic Acid (0.4-2.0) Calcium 8.7 (8.4-10.2) mg/dL Total Bilirubin 0.70 (0.2-1.3) mg/dL AST 40 (17-59) U/L ALT 42 (0-50) U/L Alkaline Phosphatase 96 (38-126) U/L Troponin I (0.000-0.033) ng/mL Serum Total Protein 7.2 (6.3-8.2) g/dL Albumin 4.3 (3.5-5.0) g/dL 12/21/24 12/21/24 12/21/24 Range/Units 06:20 07:08 08:20 WBC (4.23-9.07) x10^3/uL RBC (4.63-6.08) x10^6/uL Hgb (13.7-17.5) g/dL Hct (40.1-51.0) % MCV (79.0-92.2) fL MCH (25.7-32.2) pg MCHC (32.3-36.5) g/dL RDW (11.6-14.4) % Plt Count (163-337) x10^3/uL MPV (9.4-12.4) fL Gran % (34.0-67.9) % Immature Gran % (Auto) (0.001-0.429) % Nucleat RBC Rel Count (0.00-0.2) % Eos # (Auto) (0.04-0.54) x10^3/uL Immature Gran # (Auto) (0.001-0.031) x10^3u/L Absolute Lymphs (auto) (1.32-3.57) x10^3/uL Absolute Monos (auto) (0.30-0.82) x10^3/uL Absolute Nucleated RBC (0.00-0.012) x10^3u/L Lymphocytes % (21.8-53.1) % Monocytes % (5.3-12.2) % Eosinophils % (0.8-7.0) % Basophils % (0.2-1.2) % Absolute Granulocytes (1.78-5.38) x10^3/uL Basophils # (0.01-0.08) x10^3/uL D-Dimer (0.0-0.50) mg/L Puncture Site LEFT RADIAL pCO2 37 (35-45) mmHg pO2 71 L (75-100) mmHg Base Excess -0.7 (-2.0-2.0) O2 Saturation 93.0 L (94-100) g/dF ABG pH 7.41 (7.35-7.45) ABG HCO3 23.5 (22-28) ABG O2 Sat (Measured) 95.4 (95-100) % Sandeep Test yes A-a Gradient 32 a/A Ratio 0.69 Hemoglobin 17.7 Carboxyhemoglobin 1.4 (0.0-6.9) % THgb Methemoglobin 1.1 L (1.4-1.5) % Temperature 37.0 C POC O2 Flow Rate 21 % Sodium (135-145) mmol/L Potassium 3.0 L (3.5-5.1) mmol/L Chloride (98-107) mmol/L Carbon Dioxide (22-30) mmol/L Anion Gap (5-15) MEQ/L BUN (9-20) mg/dL Creatinine (0.66-1.25) mg/dL Estimated GFR ML/MIN Glucose (74-106) mg/dL Lactic Acid 7.3 H (0.4-2.0) Calcium (8.4-10.2) mg/dL Total Bilirubin (0.2-1.3) mg/dL AST (17-59) U/L ALT (0-50) U/L Alkaline Phosphatase (38-126) U/L Troponin I 0.036 H* (0.000-0.033) ng/mL Serum Total Protein (6.3-8.2) g/dL Albumin (3.5-5.0) g/dL - Radiology Orders Radiology Orders: Radiology Procedures Category Date Time Status CHEST WITH CONTRAST [CT] Stat Exams 12/21/24 07:30 Completed HEAD WITHOUT CONTRAST [CT] Stat Exams 12/21/24 05:56 Completed - CT Impressions CT Head w/wo contrast Status: image reviewed by me, report reviewed by me Impressions & Recommendations - ED Arrival Time ED Arrival Date & Time: ED Arrival Date and Time 12/21/24 05:55 Last known well time: - NIHSS IV Thrombolysis Standard of Care: IV thrombolysis as a standard of care in acute stroke discussed with AICHA REYES MD. Risk, benefits, and options of IV thrombolytic therapy for acute ischemic stroke were discussed with the patient/family YOLIE GONZALEZ. We discussed that use of IV tenecteplase is in line with national stroke guidelines. We discussed that risks of IV thrombolytic use include intracranial hemorrhage, other fatal bleeding risks, and angioedema. Alternatives of treatment, including not proceeding with thrombolytic therapy were discussed. - Recommendations Recommendations: -Neuro checks, NIHSS, vital signs monitoring as per post tenecteplase protocol -Repeat non contrast head CT or noncontrast MRI brain 24 hours after IV thrombolyltic administration. -Obtain STAT non contrast head CT if there are new neurological deficits, worse prakash of current deficits, or with complaint of severe headache. Notify Neurology [facility] of changes in neurological exam. -Nicardipine gtt as needed to maintain BP< 180/105 x 24hr post tenecteplase adm inistration. -Monitor for angioedema -SCD's for DVT prophylaxis. Work up: -Basic labs (CBC, BMP, TSH+T4) if not done already. -INR,PTT if not done already -Fasting Lipid Panel and Hgb A1c -Transthroacic echocardiogram [with bubble study] -EKG + Telemetry- monitor for A-FIB Secondary Stroke Prevention -Hold off on antiplatelet therapy x 24 hr post IV thrombolytic therapy Decision to initiate antiplatelet therapy, or anticoagulation if needed, will be based on repeat imaging at 24 hour post thrombolytic administration. -If not medical contraindication, start high intensity statin. Eg. Atrovastatin 80 mg daily Risk Factor Management -HTN control: BP <180/105 for first 24 hr post tenecteplase -If diabetic, optimize glucose control: buttermaker goal HgA1c <7 -HLD control: Long-term goal LDL <70. High intensity statin recommended. Moderate intensity statin in patients > 75 years. -Smoking Alcohol Use Drug use cessation counseling Stroke Rehabilitation: -Physical therapy, occupational therapy, speech therapy consults -Social work and case management consults for help with discharge needs. Impression and recommendation were discussed with Dr. AICHA REYES MD Thank you for allowing us to participate in this patient's care. Please call [facility] with questions, concerns, or change in patient's neurological status. This consult was performed via secure telemedicine audio/visual platform with [ ] RN assisting at bedside. Patient identity verified and consent obtained. TIQ recieved at [ ] Neuro Cart Time: Delays in Patient Encounter: Assessment & Plan (1) Altered mental status Current Visit: Yes Status: Acute Onset Date: ~12/20/24 Qualifiers: Altered mental status type: disorientation Qualified Code(s): R41.0 - Disorientation, unspecified Code(s): R41.82 - ALTERED MENTAL STATUS, UNSPECIFIED - Encounter Encounter: "The entirety of this encounter was performed via Telemedicine using audio and visual "
[2024-12-21] MEDS: KEPPRA PO ONE (09:00)
[2024-12-21 10:56] LABS: Appearance Clear (Clear); Bacteria None Seen /HPF (None Seen); Bilirubin Negative (Negative); Blood Negative (Negative); Epithelial Cells None Seen /HPF (None Seen); Glucose, Urine Negative (Negative); Hyaline Casts NONE SEEN /LPF (0-2); Ketones Negative (Negative); Leukocyte Esterase Negative (Negative); Nitrite Negative (Negative); Protein,Urine Dip Trace (Negative); RBC 0-2 /HPF (0-5); Specific Gravity >=1.030 (1.005-1.030); Urobilinogen 0.2 mg/dL (0.2); WBC 0-2 /HPF (0-5)
[2024-12-21 11:06] LABS: Amphetamine,Urine NEGATIVE (NEGATIVE); Barbiturate,Urine NEGATIVE (NEGATIVE); Benzodiazepine,Urine NEGATIVE (NEGATIVE); Cocaine,Urine NEGATIVE (NEGATIVE); Methadone,Urine NEGATIVE (NEGATIVE); Opiate,Urine NEGATIVE (NEGATIVE); PCP,Urine NEGATIVE (NEGATIVE); THC,Urine NEGATIVE (NEGATIVE)
[2024-12-21] MEDS ORDERED: BABY ASPIRIN 81 MG CHEW ONE (11:14)
[2024-12-21] MEDS: BABY ASPIRIN 81 MG CHEW PO ONE (11:15)
[2024-12-21] MEDS: Sodium Chloride 0.9% 1000 ML 1,000 ML IV SCH ×2 (11:15→18:28)
[2024-12-21] MEDS ORDERED: TYLENOL 325 MG ONE (18:29)
[2024-12-21] MEDS: TYLENOL 325 MG PO STA (18:30)
[2024-12-22 07:08] VITALS: O2SAT 95
[2024-12-22] MEDS ORDERED: PLAVIX Tablet ONE (08:09)
[2024-12-22] MEDS: PLAVIX Tablet PO SCH (08:15)
[2024-12-22] MEDS: KEPPRA PO SCH (08:15)
[2024-12-22 09:17] VITALS: BP 135/78; PULSE 106; RESP 12
== END 2024-12-22 09:58 | disposition short-term general hospital (02) ==
LOC: ED 05:55
DX: R56.9 Unspecified convulsions (principal); I21.4 Non-ST elevation (NSTEMI) myocardial infarction; R41.0 Disorientation, unspecified; R41.82 Altered mental status, unspecified; I10 Essential (primary) hypertension; E11.9 Type 2 diabetes mellitus without complications; Z79.84 Long term (current) use of oral hypoglycemic drugs; Z79.85 Long-term (current) use of injectable non-insulin antidiabetic drugs; Z79.899 Other long term (current) drug therapy
CPT/HCPCS: 36415; 36600; 70450; 71260; 80053; 80307; 81001; 82375; 82803; 83605; 84146; 84484; 85025; 85379; 93005; 96360; 96361; 99285; Q3014; A9270-GY

== ENCOUNTER 2025-03-02 04:21 | Emergency (ER) | payer BC ==
[2025-03-02 04:26] VITALS: TEMP 97.9
[2025-03-02 05:50] LABS: Absolute Neutrophil Ct (ANC) 10.06 x10^3/uL (1.78-5.38); BASOPHIL % 0.2 % (0.2-1.2); Basophil (Absolute #) 0.02 x10^3/uL (0.01-0.08); Eosinophil % 0.2 % (0.8-7.0); Eosinophil (Absolute #) 0.03 x10^3/uL (0.04-0.54); Hematocrit 47.6 % (40.1-51.0); Hemoglobin 15.4 g/dL (13.7-17.5); IMMATURE GRAN # 0.06 x10^3u/L (0.001-0.031); IMMATURE GRAN % 0.5 % (0.001-0.429); Lymphocyte (Absolute #) 1.73 x10^3/uL (1.32-3.57); Lymphocytes % 13.4 % (21.8-53.1); Mean Cell Volume 95.4 fL (79.0-92.2); Mean Corpuscular Hemoglobin 30.9 pg (25.7-32.2); Mean Corpuscular Hgb Concent. 32.4 g/dL (32.3-36.5); Monocytes % 7.8 % (5.3-12.2); Neutrophil % 77.9 % (34.0-67.9); Platelet Count 211 x10^3/uL (163-337); Red Blood Count 4.99 x10^6/uL (4.63-6.08); Red Cell Distribution Width 13.1 % (11.6-14.4); White Blood Count 12.9 x10^3/uL (4.23-9.07)
--- NOTE | 2025-03-02 06:00 | ERPHSYRPT ---
- History of Present Illness Source: patient, family Exam Limitations: no limitations Patient Subjective Stated Complaint: syncopal episode at home Triage Nursing Assessment: Pt arrived via EMS. Pt had a stomach ache at home and went to the bathroom, felt dizzy while sitting on the toilet and yelled for his . She helped lower him to the floor and said he had a syncopal episode of approx 30 seconds. This occured at 3am. Pt did not hit his head. Pt denies any dizziness at this time, nausea or vomiting, but complains of a headache that just occured about 30 minutes ago. Pt has had a syncopal episode once before and has had lots of testing recently but no definitive answers. Pt is going to [facility] this week on Sunday, March 05-. Timing/Duration: today Severity: moderate Associated Symptoms: headaches, syncope, weakness, No nausea, No vomiting, No abdominal pain, No shortness of breath, No chest pain, No fever Hx Tetanus, Diphtheria Vaccination/Date Given: Yes Hx Influenza Vaccination/Date Given: No Hx Pneumococcal Vaccination/Date Given: No - History of Present Illness Time Seen by Provider: 03/02/25 04:35 Physician History: This is a morbidly obese 39-year-old white male patient brought to the emergency department by equal opportunity specialist service with the complaint of syncopal episode lasting approximately 30 seconds. Because the patient could not remember all his symptoms and the circumstance, the patient's spouse provided additional, independent history. The patient was not feeling well and felt he needed to use the restroom so he went to the toilet. He called out who his because he was starting to feel dizzy. He does not recall much after that. Patient's stated that she immediately went to the bath room where he was and he was very diaphoretic and then was out for approximately 30 seconds. The patient's spouse and family members helped the patient to the ground. He did not hit his head. Patient became more responsive. Paramedics were notified and brought the patient to the emergency department. The dizziness has subsided. He does complain of a headache. He never had chest pain. He never had shortness of breath. He has not had any nausea vomiting or diarrhea symptoms. There have been no new medications. This patient has, in the last 2 to 3 months, underwent several studies including an MRI of the brain 2 weeks ago at [facility] for similar complaints/issues. Patient's primary care provider is . Patient's professor of industrial technology is Dr. Combs. Patient has a history of diabetes, GERD, sleep apnea, hypertension, hyperlipidemia and is on Plavix. Patient has an appointment at [facility] this week for further evaluation management of this particular medical issue. (RAINE BRUMFIELD) Allergies/Adverse Reactions: sulfamethoxazole [From Bactrim] Allergy (Verified 03/02/25 04:31) trimethoprim [From Bactrim] Allergy (Verified 03/02/25 04:31) Home Medications: Amlodipine Besylate 5 mg [Norvasc 5 mg] 5 mg PO BID 12/21/24 [History] Aspirin EC 81 mg [Ecotrin 81 mg] 324 mg PO DAILY 12/21/24 [History] Atorvastatin Calcium 40 mg PO DAILY 12/21/24 [History] Furosemide 40 mg [Lasix 40 MG] 20 mg PO DAILY 12/21/24 [History] Metformin HCl 500 mg [Glucophage 500 MG] 500 mg PO DAILY 12/21/24 [History] Nebivolol HCl 20 mg PO BID 12/21/24 [History] Semaglutide [Ozempic] 2 mg SQ WEEKLY 12/21/24 [History] Spironolactone 25 mg [Aldactone 25 MG] 25 mg PO DAILY 12/21/24 [History] Calcium Citrate 600 mg PO DAILY 03/02/25 [History] Clopidogrel Bisulfate [Plavix] 1 tab PO DAILY 03/02/25 [History] Folic Acid/Multivit,Iron,Blood Bank Laboratory Professional [One Daily For Women Tablet] 1 tab PO DAILY 03/02/25 [History] Mv-Mn/Iron/Folic Acid/Herb 190 [Vitamin D3 Complete Caplet] 2,000 iu PO HS 03/02/25 [History] [place]-3/Dha/Epa/Fish Oil [Fish Oil 1,000 mg Softgel] 2 each PO BID 03/02/25 [History] Travel Risk - International Travel Have you traveled outside of the country in past 3 weeks: No - Emerging Infectious Disease Are you exhibiting symptoms associated with any current EIDs: No - Review of Systems Constitutional: Weakness Eyes: No Symptoms Ears, Nose, & Throat: No Symptoms Respiratory: No Symptoms Cardiac: No Symptoms Abdominal/Gastrointestinal: No Symptoms Genitourinary Symptoms: No Symptoms Musculoskeletal: No Symptoms Skin: No Symptoms Neurological: Dizziness, Headache Psychological: Anxiety Endocrine: Excessive Sweating (At the scene at home prior to arrival) Hematologic/Lymphatic: No Symptoms Immunological/Allergic: No Symptoms All Other Systems: Reviewed and Negative - Past Medical History Pertinent Past Medical History: Yes Cardiac History: Hypertension Respiratory History: Sleep Apnea Endocrine Medical History: Diabetes Type II GI Medical History: GERD - Past Surgical History Past Surgical History: Yes Other Surgical History: ercp times 2 with polyp removal Significant Family History: no pertinent family hx - Social History Smoking Status: Never smoker Exposure to second hand smoke: No Drug Use: none - Social Determinants of Health Will the patient participate in the screening: Yes Do you worry about a steady place to live?: No Do you have any problems with any of the following?: No known problems In the past 12 months,have you had to go without utilities?: No Transportation Issues: No Has anyone in your support network made you feel unsafe?: No Have you or anyone in your house had to go w/o enough food: No - Physical Exam General Appearance: no apparent distress, alert, anxiety, obese Eye Exam: PERRL/EOMI, eyes nml inspection Ears, Nose, Throat Exam: normal ENT inspection, moist mucous membranes Neck Exam: normal inspection, non-tender, supple, full range of motion Respiratory Exam: normal breath sounds, lungs clear, airway intact, No chest tenderness, No respiratory distress Cardiovascular Exam: regular rate/rhythm, normal heart sounds, normal peripheral pulses Gastrointestinal/Abdomen Exam: soft, normal bowel sounds, No tenderness Male Genitalia Exam: normal genitalia Rectal Exam: not done Back Exam: normal inspection, normal range of motion, No CVA tenderness, No vertebral tenderness Extremity Exam: normal inspection, normal range of motion, pelvis stable Neurologic Exam: alert, oriented x 3, cooperative, poultry vaccinator II-XII nml as tested, sensation nml Skin Exam: normal color, warm, dry Lymphatic Exam: No adenopathy SpO2 Interpretation: normal SpO2: 98 O2 Delivery: Room Air - Nursing Vital Signs Nursing Vital Signs: Initial Vital Signs Temperature 97.9 F 03/02/25 04:23 Pulse Rate 103 H 03/02/25 04:23 Respiratory Rate 18 03/02/25 04:23 Blood Pressure 129/86 03/02/25 04:23 O2 Sat by Pulse Oximetry 95 03/02/25 04:23 Pain Scale Pain Intensity 2 - Course Nursing assessment & vital signs reviewed: Yes EKG Interpreted by Me: RATE (103), Sinus Tach, Left [place] Deviation, NORMAL INTERVALS, NORMAL QRS, Other (No acute ischemic changes. QTc is 433) Ordered Tests: Active Orders 24 hr Category Date Time Status EKG-ER Only STAT Care 03/02/25 05:10 Active IV Insertion STAT Care 03/02/25 05:10 Active HEAD WITHOUT CONTRAST [CT] Stat Exams 03/02/25 05:11 Completed CBC W DIFF Stat Lab 03/02/25 05:40 Completed CMP Stat Lab 03/02/25 05:40 Completed MAGNESIUM Stat Lab 03/02/25 05:40 Completed MONO SCREEN Stat Lab 03/02/25 05:49 Completed NT PRO BNPII Stat Lab 03/02/25 05:40 Completed PROTIME WITH INR Stat Lab 03/02/25 05:40 Completed TROPONIN Q4H Lab 03/02/25 05:40 Completed TROPONIN Q4H Lab 03/02/25 07:50 Completed TROPONIN Q4H Lab 03/02/25 13:15 Ordered TSH [TSH, 3RD Generation] Stat Lab 03/02/25 05:49 Completed UA W/RFX UR CULTURE Stat Lab 03/02/25 06:26 Completed Medication Summary Generic Name Dose Route Start Last Admin Trade Name Freq PRN Reason Stop Dose Admin Sodium Chloride 500 mls @ 100 mls/hr 03/02/25 06:15 03/02/25 06:29 Sodium Chloride 0.9% 500 Ml IV 04/01/25 06:14 Not Given .Q5H DYLON Sodium Chloride 1,000 mls @ 100 mls/hr 03/02/25 06:30 03/02/25 06:32 Sodium Chloride 0.9% 1000 Ml IV 04/01/25 06:29 100 mls/hr .Q10H DYLON Administration Discontinued Medications Generic Name Dose Route Start Last Admin Trade Name Freq PRN Reason Stop Dose Admin Sodium Chloride Confirm 03/02/25 06:13 Sodium Chloride 0.9% 1000 Ml Administered 03/02/25 06:14 Dose 1,000 mls @ ud .ROUTE .STK-MED ONE Lab/Rad Data: Laboratory Result Diagrams 03/02/25 05:40 03/02/25 05:40 Laboratory Results 03/02/25 03/02/25 03/02/25 Range/Units 07:50 06:53 06:26 WBC (4.23-9.07) x10^3/uL RBC (4.63-6.08) x10^6/uL Hgb (13.7-17.5) g/dL Hct (40.1-51.0) % MCV (79.0-92.2) fL MCH (25.7-32.2) pg MCHC (32.3-36.5) g/dL RDW (11.6-14.4) % Plt Count (163-337) x10^3/uL MPV (9.4-12.4) fL Gran % (34.0-67.9) % Immature Gran % (Auto) (0.001-0.429) % Nucleat RBC Rel Count (0.00-0.2) % Eos # (Auto) (0.04-0.54) x10^3/uL Immature Gran # (Auto) (0.001-0.031) x10^3u/L Absolute Lymphs (auto) (1.32-3.57) x10^3/uL Absolute Monos (auto) (0.30-0.82) x10^3/uL Absolute Nucleated RBC (0.00-0.012) x10^3u/L Lymphocytes % (21.8-53.1) % Monocytes % (5.3-12.2) % Eosinophils % (0.8-7.0) % Basophils % (0.2-1.2) % Absolute Granulocytes (1.78-5.38) x10^3/uL Basophils # (0.01-0.08) x10^3/uL PT (9.4-12.5) SECONDS INR (0.8-3.0) Sodium (135-145) mmol/L Potassium (3.5-5.1) mmol/L Chloride (98-107) mmol/L Carbon Dioxide (22-30) mmol/L Anion Gap (5-15) MEQ/L BUN (9-20) mg/dL Creatinine (0.66-1.25) mg/dL Estimated GFR ML/MIN Glucose (74-106) mg/dL Calcium (8.4-10.2) mg/dL Magnesium (1.6-2.3) mg/dL Total Bilirubin (0.2-1.3) mg/dL AST (17-59) U/L ALT (0-50) U/L Alkaline Phosphatase (38-126) U/L Troponin I < 0.012 (0.000-0.033) ng/mL NT-Pro-B Natriuret Pep (<300) pg/mL Serum Total Protein (6.3-8.2) g/dL Albumin (3.5-5.0) g/dL Free T4 (0.78-2.19) ng/dL TSH 3rd Generation (0.470-4.680) mIU/L Urine Color Yellow (Yellow) Urine Appearance Clear (Clear) Urine pH 7.0 (4.6-8.0) Ur Specific [place] 1.020 (1.005-1.030) Urine Protein 30 (Negative) Urine Glucose (UA) Negative (Negative) mg/dL Urine Ketones Trace A (Negative) Urine Blood Negative (Negative) Urine Nitrite Negative (Negative) Urine Bilirubin Negative (Negative) Urine Urobilinogen 1.0 A (0.2) mg/dL Ur Leukocyte Esterase Negative (Negative) U Hyaline Cast (Auto) NONE SEEN (0-2) /LPF Urine Microscopic RBC 0-2 (0-5) /HPF Urine Microscopic WBC 0-2 (0-5) /HPF Ur Epithelial Cells None Seen (None Seen) /HPF Urine Bacteria None Seen (None Seen) /HPF Urine Culture Reflexed NO (NO) Monoscreen (NEGATIVE) Influenza Type A Ag NEGATIVE (NEGATIVE) Influenza Type B Ag NEGATIVE (NEGATIVE) RSV (PCR) NEGATIVE (NEGATIVE) SARS-CoV-2 (PCR) NEGATIVE (NEGATIVE) 03/02/25 03/02/25 03/02/25 Range/Units 05:49 05:49 05:49 WBC (4.23-9.07) x10^3/uL RBC (4.63-6.08) x10^6/uL Hgb (13.7-17.5) g/dL Hct (40.1-51.0) % MCV (79.0-92.2) fL MCH (25.7-32.2) pg MCHC (32.3-36.5) g/dL RDW (11.6-14.4) % Plt Count (163-337) x10^3/uL MPV (9.4-12.4) fL Gran % (34.0-67.9) % Immature Gran % (Auto) (0.001-0.429) % Nucleat RBC Rel Count (0.00-0.2) % Eos # (Auto) (0.04-0.54) x10^3/uL Immature Gran # (Auto) (0.001-0.031) x10^3u/L Absolute Lymphs (auto) (1.32-3.57) x10^3/uL Absolute Monos (auto) (0.30-0.82) x10^3/uL Absolute Nucleated RBC (0.00-0.012) x10^3u/L Lymphocytes % (21.8-53.1) % Monocytes % (5.3-12.2) % Eosinophils % (0.8-7.0) % Basophils % (0.2-1.2) % Absolute Granulocytes (1.78-5.38) x10^3/uL Basophils # (0.01-0.08) x10^3/uL PT (9.4-12.5) SECONDS INR (0.8-3.0) Sodium (135-145) mmol/L Potassium (3.5-5.1) mmol/L Chloride (98-107) mmol/L Carbon Dioxide (22-30) mmol/L Anion Gap (5-15) MEQ/L BUN (9-20) mg/dL Creatinine (0.66-1.25) mg/dL Estimated GFR ML/MIN Glucose (74-106) mg/dL Calcium (8.4-10.2) mg/dL Magnesium (1.6-2.3) mg/dL Total Bilirubin (0.2-1.3) mg/dL AST (17-59) U/L ALT (0-50) U/L Alkaline Phosphatase (38-126) U/L Troponin I (0.000-0.033) ng/mL NT-Pro-B Natriuret Pep (<300) pg/mL Serum Total Protein (6.3-8.2) g/dL Albumin (3.5-5.0) g/dL Free T4 0.97 (0.78-2.19) ng/dL TSH 3rd Generation 1.783 (0.470-4.680) mIU/L Urine Color (Yellow) Urine Appearance (Clear) Urine pH (4.6-8.0) Ur Specific [place] (1.005-1.030) Urine Protein (Negative) Urine Glucose (UA) (Negative) mg/dL Urine Ketones (Negative) Urine Blood (Negative) Urine Nitrite (Negative) Urine Bilirubin (Negative) Urine Urobilinogen (0.2) mg/dL Ur Leukocyte Esterase (Negative) U Hyaline Cast (Auto) (0-2) /LPF Urine Microscopic RBC (0-5) /HPF Urine Microscopic WBC (0-5) /HPF Ur Epithelial Cells (None Seen) /HPF Urine Bacteria (None Seen) /HPF Urine Culture Reflexed (NO) Monoscreen NEGATIVE (NEGATIVE) Influenza Type A Ag (NEGATIVE) Influenza Type B Ag (NEGATIVE) RSV (PCR) (NEGATIVE) SARS-CoV-2 (PCR) (NEGATIVE) 03/02/25 03/02/25 03/02/25 Range/Units 05:40 05:40 05:40 WBC (4.23-9.07) x10^3/uL RBC (4.63-6.08) x10^6/uL Hgb (13.7-17.5) g/dL Hct (40.1-51.0) % MCV (79.0-92.2) fL MCH (25.7-32.2) pg MCHC (32.3-36.5) g/dL RDW (11.6-14.4) % Plt Count (163-337) x10^3/uL MPV (9.4-12.4) fL Gran % (34.0-67.9) % Immature Gran % (Auto) (0.001-0.429) % Nucleat RBC Rel Count (0.00-0.2) % Eos # (Auto) (0.04-0.54) x10^3/uL Immature Gran # (Auto) (0.001-0.031) x10^3u/L Absolute Lymphs (auto) (1.32-3.57) x10^3/uL Absolute Monos (auto) (0.30-0.82) x10^3/uL Absolute Nucleated RBC (0.00-0.012) x10^3u/L Lymphocytes % (21.8-53.1) % Monocytes % (5.3-12.2) % Eosinophils % (0.8-7.0) % Basophils % (0.2-1.2) % Absolute Granulocytes (1.78-5.38) x10^3/uL Basophils # (0.01-0.08) x10^3/uL PT 11.4 (9.4-12.5) SECONDS INR 1.05 (0.8-3.0) Sodium (135-145) mmol/L Potassium (3.5-5.1) mmol/L Chloride (98-107) mmol/L Carbon Dioxide (22-30) mmol/L Anion Gap (5-15) MEQ/L BUN (9-20) mg/dL Creatinine (0.66-1.25) mg/dL Estimated GFR ML/MIN Glucose (74-106) mg/dL Calcium (8.4-10.2) mg/dL Magnesium (1.6-2.3) mg/dL Total Bilirubin (0.2-1.3) mg/dL AST (17-59) U/L ALT (0-50) U/L Alkaline Phosphatase (38-126) U/L Troponin I < 0.012 (0.000-0.033) ng/mL NT-Pro-B Natriuret Pep < 20.0 (<300) pg/mL Serum Total Protein (6.3-8.2) g/dL Albumin (3.5-5.0) g/dL Free T4 (0.78-2.19) ng/dL TSH 3rd Generation (0.470-4.680) mIU/L Urine Color (Yellow) Urine Appearance (Clear) Urine pH (4.6-8.0) Ur Specific [place] (1.005-1.030) Urine Protein (Negative) Urine Glucose (UA) (Negative) mg/dL Urine Ketones (Negative) Urine Blood (Negative) Urine Nitrite (Negative) Urine Bilirubin (Negative) Urine Urobilinogen (0.2) mg/dL Ur Leukocyte Esterase (Negative) U Hyaline Cast (Auto) (0-2) /LPF Urine Microscopic RBC (0-5) /HPF Urine Microscopic WBC (0-5) /HPF Ur Epithelial Cells (None Seen) /HPF Urine Bacteria (None Seen) /HPF Urine Culture Reflexed (NO) Monoscreen (NEGATIVE) Influenza Type A Ag (NEGATIVE) Influenza Type B Ag (NEGATIVE) RSV (PCR) (NEGATIVE) SARS-CoV-2 (PCR) (NEGATIVE) 03/02/25 03/02/25 Range/Units 05:40 05:40 WBC 12.9 H (4.23-9.07) x10^3/uL RBC 4.99 (4.63-6.08) x10^6/uL Hgb 15.4 (13.7-17.5) g/dL Hct 47.6 (40.1-51.0) % MCV 95.4 H (79.0-92.2) fL MCH 30.9 (25.7-32.2) pg MCHC 32.4 (32.3-36.5) g/dL RDW 13.1 (11.6-14.4) % Plt Count 211 (163-337) x10^3/uL MPV 9.0 L (9.4-12.4) fL Gran % 77.9 H (34.0-67.9) % Immature Gran % (Auto) 0.5 H (0.001-0.429) % Nucleat RBC Rel Count 0.0 (0.00-0.2) % Eos # (Auto) 0.03 L (0.04-0.54) x10^3/uL Immature Gran # (Auto) 0.06 H (0.001-0.031) x10^3u/L Absolute Lymphs (auto) 1.73 (1.32-3.57) x10^3/uL Absolute Monos (auto) 1.00 H (0.30-0.82) x10^3/uL Absolute Nucleated RBC 0.00 (0.00-0.012) x10^3u/L Lymphocytes % 13.4 L (21.8-53.1) % Monocytes % 7.8 (5.3-12.2) % Eosinophils % 0.2 L (0.8-7.0) % Basophils % 0.2 (0.2-1.2) % Absolute Granulocytes 10.06 H (1.78-5.38) x10^3/uL Basophils # 0.02 (0.01-0.08) x10^3/uL PT (9.4-12.5) SECONDS INR (0.8-3.0) Sodium 143 (135-145) mmol/L Potassium 3.8 (3.5-5.1) mmol/L Chloride 106 (98-107) mmol/L Carbon Dioxide 22 (22-30) mmol/L Anion Gap 18.1 H (5-15) MEQ/L BUN 19 (9-20) mg/dL Creatinine 1.23 (0.66-1.25) mg/dL Estimated GFR 75.6 ML/MIN Glucose 95 (74-106) mg/dL Calcium 9.4 (8.4-10.2) mg/dL Magnesium 1.8 (1.6-2.3) mg/dL Total Bilirubin 0.60 (0.2-1.3) mg/dL AST 27 (17-59) U/L ALT 35 (0-50) U/L Alkaline Phosphatase 81 (38-126) U/L Troponin I (0.000-0.033) ng/mL NT-Pro-B Natriuret Pep (<300) pg/mL Serum Total Protein 6.8 (6.3-8.2) g/dL Albumin 4.4 (3.5-5.0) g/dL Free T4 (0.78-2.19) ng/dL TSH 3rd Generation (0.470-4.680) mIU/L Urine Color (Yellow) Urine Appearance (Clear) Urine pH (4.6-8.0) Ur Specific [place] (1.005-1.030) Urine Protein (Negative) Urine Glucose (UA) (Negative) mg/dL Urine Ketones (Negative) Urine Blood (Negative) Urine Nitrite (Negative) Urine Bilirubin (Negative) Urine Urobilinogen (0.2) mg/dL Ur Leukocyte Esterase (Negative) U Hyaline Cast (Auto) (0-2) /LPF Urine Microscopic RBC (0-5) /HPF Urine Microscopic WBC (0-5) /HPF Ur Epithelial Cells (None Seen) /HPF Urine Bacteria (None Seen) /HPF Urine Culture Reflexed (NO) Monoscreen (NEGATIVE) Influenza Type A Ag (NEGATIVE) Influenza Type B Ag (NEGATIVE) RSV (PCR) (NEGATIVE) SARS-CoV-2 (PCR) (NEGATIVE) - Progress Progress Note: 03/02/25 06:04 My medical decision making and the assignment of moderate complexity of this patient's medical issue today is based on review of the patient's past medical history, review the patient's medication list, review patient drug allergy list, history present illness and physical findings on examination. The workup in this patient includes placement of intravenous line, infusion of crystalloid solution, CBC, CMP, magnesium level, troponin level, twelve-lead EKG, CT scan of the head without contrast and urinalysis. Differential diagnosis includes but is not limited to acute intracranial abnormality, arrhythmia, electrolyte abnormalities, myocardial infarction, dehydration, urinary tract infection, syncopal episode 03/02/25 06:[address] scan of the head without contrast was interpreted by the radiologist and I reviewed the impression. The impression states no evidence of acute intracranial abnormality. I am transferring care of this patient to Dr. Dover at shift change. I have discussed the patient's past medical history, presenting complaint and pending workup results. He will make final disposition. (RAINE BRUMFIELD) The patient was turned over to me at shift change. Patient is still feeling little bit fatigued but that is not unusual for him. I was waiting on his viral panel to come back it was all negative. As well as his second troponin it was not elevated either. The patient has a follow-up with [facility] in 3 days. He is stable for discharge. He has a new onset of syncopal episodes and presyncopal episodes that is as of yet without a known etiology. 03/02/25 09:02 (AICHA DOVER) - Departure Departure Disposition: Home Critical Care Time: No - Departure Clinical Impression: Episode of syncope Condition: Stable Referrals: CECILE POSADAS MD [Primary Care Provider, INTERNAL MEDICINE] - Follow up/PCP as directed Instructions: Syncope (Fainting) (DC)
[2025-03-02 06:02] LABS: INR 1.05 (0.8-3.0); PROTIME 11.4 SECONDS (9.4-12.5)
[2025-03-02 06:03] LABS: ALBUMIN 4.4 g/dL (3.5-5.0); ANION GAP 18.1 MEQ/L (5-15); BILIRUBIN,TOTAL 0.6 mg/dL (0.2-1.3); Calcium 9.4 mg/dL (8.4-10.2); Creatinine 1 1.23 mg/dL (0.66-1.25); EST GLOMERULAR FILTRATION RATE 75.6 ML/MIN; MAGNESIUM 1.8 mg/dL (1.6-2.3); Potassium 3.8 mmol/L (3.5-5.1); Total Protein 6.8 g/dL (6.3-8.2)
[2025-03-02] MEDS ORDERED: Sodium Chloride 0.9% 1000 ML 1,000 ML ONE (06:13)
[2025-03-02] MEDS: Sodium Chloride 0.9% 500 ML 500 ML IV SCH (06:29)
--- NOTE | 2025-03-02 06:29 | XRAY ---
CLINICAL HISTORY: Syncope COMPARISON: 04:52:26 INTERPRETER. TECHNIQUE: Multiple axial images are obtained from the skull base to the vertex without contrast. CT scan was performed according to ALARA (as low as reasonable achievable). FINDINGS: The brain shows normal morphology, attenuation, and volume for age. No evidence of space occupying lesion, hemorrhage, edema, mass effect, midline shift, extra axial collection, or hydrocephalus is noted. Ventricles, sulci, and basal cisterns are symmetric and normal in size and configuration. The hall-white matter differentiation is preserved. Bilateral maxillary sinusitis. Rest of paranasal sinuses and mastoid air cells are well aerated. Orbital contents are within normal limits. Bony structures are intact. IMPRESSION: 1. No evidence of acute intracranial abnormality is demonstrated Electronically Signed by: Jules Zamorano MD. (03/02/2025 06:26:07 EDT)
[2025-03-02] MEDS: Sodium Chloride 0.9% 1000 ML 1,000 ML IV SCH (06:32)
[2025-03-02 06:35] LABS: Appearance Clear (Clear); Bacteria None Seen /HPF (None Seen); Bilirubin Negative (Negative); Blood Negative (Negative); Epithelial Cells None Seen /HPF (None Seen); Glucose, Urine Negative (Negative); Hyaline Casts NONE SEEN /LPF (0-2); Ketones Trace (Negative); Leukocyte Esterase Negative (Negative); Nitrite Negative (Negative); Protein,Urine Dip 30 (Negative); RBC 0-2 /HPF (0-5); WBC 0-2 /HPF (0-5)
[2025-03-02 07:33] LABS: INFLUENZA A NEGATIVE (NEGATIVE); INFLUENZA B NEGATIVE (NEGATIVE); RESPIRATORY SYNCTIAL VIRUS NEGATIVE (NEGATIVE); SARS-CoV-2 Xpert Express NEGATIVE (NEGATIVE)
[2025-03-02 09:20] VITALS: BP 113/74; PULSE 101; RESP 2; O2SAT 94
== END 2025-03-02 09:39 | disposition home or self-care (01) ==
LOC: ED 04:21
DX: R55 Syncope and collapse (principal); R51.9 Headache, unspecified; Z79.85 Long-term (current) use of injectable non-insulin antidiabetic drugs; Z79.84 Long term (current) use of oral hypoglycemic drugs; Z79.02 Long term (current) use of antithrombotics/antiplatelets; Z79.899 Other long term (current) drug therapy
CPT/HCPCS: 0241U; 36415; 70450; 80053; 81001; 83735; 83880; 84439; 84443; 84484; 85025; 85610; 86308; 93005; 99285; 99284